=== PATIENT | female | born 1965 | race Caucasian/White ===

== ENCOUNTER → 2020-07-21 | Outpatient (CLI) | payer OTHER ==
--- NOTE | 2020-07-21 14:40 | XR ---
EXAMINATION TYPE: XR wrist complete LT DATE OF EXAM: 07/21/2020 COMPARISON: None HISTORY: Sprain left wrist TECHNIQUE: 4 view left wrist FINDINGS: Joint spaces are preserved. No acute fracture or dislocation is evident. The soft tissues a re normal. If there is pain at the anatomic snuff box, nuclear medicine bone scan be recommended for additional evaluation. Follow-up exams can be performed 7 days from acute trauma for continued pain. IMPRESSION: 1. Normal 4 view left wrist
--- NOTE | 2020-07-21 14:41 | XR ---
EXAMINATION TYPE: XR hand complete LT DATE OF EXAM: 07/21/2020 COMPARISON: None HISTORY: Sprain TECHNIQUE: Three-view left hand FINDINGS: No acute fractures or dislocations are evident. Joint spaces are preserved. Soft tissues ar e normal. Follow-up exams can be performed 7-10 days from acute trauma for continued pain. IMPRESSION: 1. Normal three-view left hand
== END | disposition home or self-care (01) ==
LOC: RADXRMAIN 14:09
PROVIDERS: ATTEND Emergency Medicine
DX: S63.502A Unspecified sprain of left wrist, initial encounter (principal)

== ENCOUNTER → 2020-08-29 | Outpatient (CLI) | payer OTHER ==
--- NOTE | 2020-08-29 16:15 | XR ---
EXAMINATION TYPE: XR wrist complete LT DATE OF EXAM: 08/29/2020 CLINICAL HISTORY: pain TECHNIQUE: Frontal, lateral and oblique images of the left hand are obtained. COMPARISON: None. FINDINGS: There is no acute fracture/dislocation evident. The joint spaces appear within normal limi ts. The overlying soft tissue appears unremarkable. IMPRESSION: There is no acute fracture or dislocation. ICD 10 NO FRACTURE, INITIAL EVALUATION
== END | disposition home or self-care (01) ==
LOC: RAD 15:43
PROVIDERS: ATTEND Emergency Medicine
DX: S63.502D Unspecified sprain of left wrist, subsequent encounter (principal); M25.532 Pain in left wrist